=== PATIENT | male | born 1965 | race Caucasian/White ===

== ENCOUNTER 2020-07-14 12:25 | Emergency (ER) | payer SELFPAY ==
[~2020-07-14] VITALS: Ht 185.4 cm; Wt 79.4 kg
[2020-07-14 12:52] VITALS: BP 120/75
[2020-07-14] MEDS ORDERED: LIDOCAINE 1% HCL (LOCAL ANESTH.) INJ 20ML MDV ONE (14:29)
[2020-07-14] MEDS ORDERED: LIDOCAINE 1% HCL (LOCAL ANESTH.) INJ 20ML MDV IJ ONE (14:30)
[2020-07-14] MEDS ORDERED: TETANUS-DIPTH-ACEL PERTUSSIS 0.5ML SYR Tdap IM ONE (15:00)
== END 2020-07-14 15:47 | disposition home or self-care (01) ==
LOC: ER 12:25
DX: S61.411A Laceration without foreign body of right hand, initial encounter (principal); F17.210 Nicotine dependence, cigarettes, uncomplicated; W26.8XXA Contact with other sharp object(s), not elsewhere classified, initial encounter; Y93.89 Activity, other specified; Y92.89 Other specified places as the place of occurrence of the external cause; Y99.8 Other external cause status
CPT/HCPCS: 12002; 73130; 90471; 90715; 99283; J2001

== ENCOUNTER 2021-05-20 21:09 | Inpatient (IN) | payer MEDICAID, OTHER ==
[~2021-05-20] VITALS: Ht 185.4 cm; Wt 81.6 kg
[2021-05-20 22:40] LABS: Basophils # (auto) 0 10 ^3/uL (0-0.2); Basophils % (auto) 0.9 % (0.0-2.0); Eosinophils # (auto) 0.3 10 ^3/uL (0-0.8); Eosinophils % (auto) 5.4 % (0.0-7.0); Hematocrit 42.4 % (41.0-53.0); Lymphocytes # (auto) 0.8 10 ^3/uL (0.4-5.4); Lymphocytes % (auto) 13.9 % (10.0-50.0); Mean Corpuscular Hemoglobin 29.6 pg (28.0-32.0); Mean Corpuscular Hgb Conc. 33.2 g/dL (32.0-36.0); Mean Corpuscular Volume 89.4 fL (80.0-100.0); Monocytes # (auto) 0.6 10 ^3/uL (0-1.3); Monocytes % (auto) 9.9 % (0.0-12.0); Neutrophils % (auto) 69.9 % (37.0-80.0); Red Blood Cells 4.74 10^6/uL (4.5-5.90); Red Cell Distribution Width 14.3 % (11.8-14.3); White Blood Cell 5.7 10^3/uL (4.4-10.8)
[2021-05-20 22:59] LABS: Albumin 3.2 g/dL (3.4-5.0); Calcium 8.3 mg/dL (8.5-10.1); Potassium 3.8 mmol/L (3.5-5.1)
[2021-05-20 23:01] LABS: Bilirubin, Total 0.5 mg/dL (0.2-1.0); Total Protein 7.1 g/dL (6.4-8.2)
[2021-05-20 23:11] LABS: Lactic Acid w/Reflex 2.2 mmol/L (0.4-2.0)
[2021-05-20 23:38] LABS: INR 1.1 (0.9-1.15)
[2021-05-21] MEDS ORDERED: SODIUM CHLORIDE 0.9% 1,000 ML IV ONE (03:30)
[2021-05-21] MEDS ORDERED: CLINDAMYCIN 600MG IV 50 ML IV ONE (03:30)
[2021-05-21] MEDS ORDERED: HYDROcodone-ACET 5/325MG TAB PO PRN (06:45)
[2021-05-21] MEDS ORDERED: SODIUM CHLORIDE 0.9% 500 ML IV ONE (06:45)
[2021-05-21] MEDS ORDERED: ACETAMINOPHEN 325 MG TAB PO PRN (06:45)
[2021-05-21] MEDS ORDERED: ONDANSETRON HCL 4 MG/2 ML VIAL IV PRN (06:45)
[2021-05-21] MEDS ORDERED: TEMAZEPAM 15 MG CAP PO PRN (06:45)
[2021-05-21] MEDS: cefTRIAXone 1GM/50ML D5W 50 ML IV SCH (09:27)
[2021-05-21] MEDS: PANTOPRAZOLE 40 MG TAB PO SCH (09:27)
[2021-05-21] MEDS: ENOXAPARIN SOD 40 MG/0.4 ML SYRINGE SC SCH (10:10)
[2021-05-21] MEDS: CLINDAMYCIN 600MG IV 50 ML IV SCH ×2 (13:19→20:00)
[2021-05-21 21:20] VITALS: BP 157/76
[2021-05-21 22:00] VITALS: BP 157/76
[2021-05-22] MEDS: CLINDAMYCIN 600MG IV 50 ML IV SCH ×2 (04:46→12:00)
[2021-05-22 05:00] VITALS: BP 103/67
[2021-05-22 06:19] LABS: Basophils # (auto) 0 10 ^3/uL (0-0.2); Basophils % (auto) 0.6 % (0.0-2.0); Eosinophils # (auto) 0.3 10 ^3/uL (0-0.8); Eosinophils % (auto) 5.8 % (0.0-7.0); Hematocrit 41.5 % (41.0-53.0); Hemoglobin 13.8 g/dL (13.5-17.5); Lymphocytes # (auto) 0.7 10 ^3/uL (0.4-5.4); Lymphocytes % (auto) 13.6 % (10.0-50.0); Mean Corpuscular Hemoglobin 29.7 pg (28.0-32.0); Mean Corpuscular Hgb Conc. 33.4 g/dL (32.0-36.0); Mean Corpuscular Volume 89.1 fL (80.0-100.0); Monocytes # (auto) 0.6 10 ^3/uL (0-1.3); Monocytes % (auto) 11.1 % (0.0-12.0); Neutrophils # (auto) 3.6 10 ^3/uL (1.6-8.6); Neutrophils % (auto) 68.9 % (37.0-80.0); Nucleated Red Blood Cells % 0.1 %; Red Blood Cells 4.66 10^6/uL (4.5-5.90); Red Cell Distribution Width 14.3 % (11.8-14.3); White Blood Cell 5.3 10^3/uL (4.4-10.8)
[2021-05-22 06:48] LABS: BUN/Creatinine Ratio 21.1; Calcium 8.1 mg/dL (8.5-10.1); Potassium 4.2 mmol/L (3.5-5.1)
[2021-05-22 09:06] VITALS: BP 143/81
[2021-05-22] MEDS: cefTRIAXone 1GM/50ML D5W 50 ML IV SCH (09:10)
[2021-05-22] MEDS: PANTOPRAZOLE 40 MG TAB PO SCH (09:10)
[2021-05-22] MEDS: ENOXAPARIN SOD 40 MG/0.4 ML SYRINGE SC SCH (09:10)
[2021-05-22 14:13] VITALS: BP 142/71
[2021-05-22 14:38] VITALS: BP 142/71
[2021-05-22 16:22] VITALS: BP 152/83
== END 2021-05-22 16:46 | disposition home or self-care (01) | DRG 720 ==
LOC: ER 21:10 → OVERFLOW 05-21 06:45 → WEST WING 05-21 21:20 → TELE-WESTW 05-21 21:33
PROVIDERS: ADMIT Nurse Practitioner; ATTEND Family Medicine
DX: A41.9 Sepsis, unspecified organism (principal); E87.2 Acidosis; E44.0 Moderate protein-calorie malnutrition; L03.115 Cellulitis of right lower limb; L03.116 Cellulitis of left lower limb; F12.90 Cannabis use, unspecified, uncomplicated; F15.10 Other stimulant abuse, uncomplicated; F17.210 Nicotine dependence, cigarettes, uncomplicated; F19.10 Other psychoactive substance abuse, uncomplicated; Z20.822 Contact with and (suspected) exposure to COVID-19; Z68.23 Body mass index [BMI] 23.0-23.9, adult
CPT/HCPCS: 36415; 73590; 80048; 80053; 83605; 85025; 85610; 87040; 87426; 93005; 93306; 93971; 96361; 96365; 96366; G0378; J0696; J3490

== ENCOUNTER 2021-06-11 15:48 | Emergency (ER) | payer MEDICAID ==
[~2021-06-11] VITALS: Ht 182.9 cm; Wt 86.2 kg
[2021-06-11 15:50] VITALS: BP 140/87
[2021-06-11 16:41] LABS: Basophils # (auto) 0.1 10 ^3/uL (0-0.2); Basophils % (auto) 0.8 % (0.0-2.0); Eosinophils # (auto) 0.3 10 ^3/uL (0-0.8); Eosinophils % (auto) 3.5 % (0.0-7.0); Hematocrit 45.6 % (41.0-53.0); Hemoglobin 15.3 g/dL (13.5-17.5); Lymphocytes # (auto) 0.8 10 ^3/uL (0.4-5.4); Lymphocytes % (auto) 8.4 % (10.0-50.0); Mean Corpuscular Hemoglobin 29.5 pg (28.0-32.0); Mean Corpuscular Hgb Conc. 33.5 g/dL (32.0-36.0); Mean Corpuscular Volume 88.1 fL (80.0-100.0); Monocytes # (auto) 0.8 10 ^3/uL (0-1.3); Monocytes % (auto) 8.6 % (0.0-12.0); Neutrophils # (auto) 7.8 10 ^3/uL (1.6-8.6); Neutrophils % (auto) 78.7 % (37.0-80.0); Red Blood Cells 5.17 10^6/uL (4.5-5.90); Red Cell Distribution Width 14.2 % (11.8-14.3); White Blood Cell 9.8 10^3/uL (4.4-10.8)
[2021-06-11] MEDS ORDERED: ASPirin 81 mg TAB PO ONE (16:45)
[2021-06-11 18:13] LABS: Albumin 3.5 g/dL (3.4-5.0); BUN/Creatinine Ratio 17.6; Calcium 8.7 mg/dL (8.5-10.1); Potassium 3.9 mmol/L (3.5-5.1)
[2021-06-11 18:15] LABS: Bilirubin, Total 0.7 mg/dL (0.2-1.0); Total Protein 7.7 g/dL (6.4-8.2)
[2021-06-11] MEDS ORDERED: NITROGLYCERIN 0.4 MG SL TAB SL ONE (19:00)
== END 2021-06-11 19:22 | disposition left against medical advice (07) ==
LOC: ER 15:48
DX: I24.9 Acute ischemic heart disease, unspecified (principal); L03.116 Cellulitis of left lower limb; F17.210 Nicotine dependence, cigarettes, uncomplicated; F12.10 Cannabis abuse, uncomplicated; F15.10 Other stimulant abuse, uncomplicated; Z53.29 Procedure and treatment not carried out because of patient's decision for other reasons
CPT/HCPCS: 36415; 71045; 80053; 84484; 85025; 93005

== ENCOUNTER 2022-04-27 14:51 | Inpatient (IN) | payer MEDICAID ==
[~2022-04-27] VITALS: Ht 182.9 cm; Wt 73.6 kg
[2022-04-27] MEDS ORDERED: CLINDAMYCIN 600MG IV 50 ML IV ONE (15:30)
[2022-04-27 16:02] LABS: Basophils # (auto) 0 10 ^3/uL (0-0.2); Basophils % (auto) 0.5 % (0.0-2.0); Eosinophils # (auto) 0.1 10 ^3/uL (0-0.8); Eosinophils % (auto) 1.9 % (0.0-7.0); Hematocrit 37.5 % (41.0-53.0); Hemoglobin 12.2 g/dL (13.5-17.5); Lymphocytes # (auto) 0.3 10 ^3/uL (0.4-5.4); Lymphocytes % (auto) 4.8 % (10.0-50.0); Mean Corpuscular Hemoglobin 27.6 pg (28.0-32.0); Mean Corpuscular Hgb Conc. 32.4 g/dL (32.0-36.0); Mean Corpuscular Volume 85.2 fL (80.0-100.0); Monocytes # (auto) 0.5 10 ^3/uL (0-1.3); Monocytes % (auto) 8.7 % (0.0-12.0); Neutrophils # (auto) 4.7 10 ^3/uL (1.6-8.6); Neutrophils % (auto) 84.1 % (37.0-80.0); Red Cell Distribution Width 16.7 % (11.8-14.3); White Blood Cell 5.6 10^3/uL (4.4-10.8)
[2022-04-27 16:18] LABS: Albumin 2.9 g/dL (3.4-5.0); Calcium 7.9 mg/dL (8.5-10.1); Potassium 3.5 mmol/L (3.5-5.1)
[2022-04-27 16:30] LABS: BUN/Creatinine Ratio 27.1; Bilirubin, Total 0.5 mg/dL (0.2-1.0); Total Protein 6.4 g/dL (6.4-8.2)
[2022-04-27] MEDS ORDERED: TEMAZEPAM 15 MG CAP PO PRN (22:15)
[2022-04-27] MEDS ORDERED: ONDANSETRON HCL 4 MG/2 ML VIAL IV PRN (22:15)
[2022-04-27] MEDS ORDERED: cefTRIAXone 1GM/50ML D5W 50 ML IV ONE (22:15)
[2022-04-27] MEDS ORDERED: ACETAMINOPHEN 325 MG TAB PO PRN (22:15)
[2022-04-27 23:29] LABS: Lactic Acid w/Reflex 2.1 mmol/L (0.4-2.0)
[2022-04-27] MEDS: HYDROcodone-ACET 5/325MG TAB PO PRN (23:33)
[2022-04-28 04:20] LABS: Basophils # (auto) 0.1 10 ^3/uL (0-0.2); Basophils % (auto) 1.1 % (0.0-2.0); Eosinophils # (auto) 0.2 10 ^3/uL (0-0.8); Eosinophils % (auto) 3.9 % (0.0-7.0); Hemoglobin 11.8 g/dL (13.5-17.5); Lymphocytes # (auto) 0.5 10 ^3/uL (0.4-5.4); Mean Corpuscular Hemoglobin 27.6 pg (28.0-32.0); Mean Corpuscular Hgb Conc. 32.8 g/dL (32.0-36.0); Mean Corpuscular Volume 84.2 fL (80.0-100.0); Monocytes # (auto) 0.7 10 ^3/uL (0-1.3); Monocytes % (auto) 14.7 % (0.0-12.0); Neutrophils # (auto) 3.2 10 ^3/uL (1.6-8.6); Neutrophils % (auto) 69.3 % (37.0-80.0); Red Blood Cells 4.28 10^6/uL (4.5-5.90); Red Cell Distribution Width 16.9 % (11.8-14.3); White Blood Cell 4.7 10^3/uL (4.4-10.8)
[2022-04-28 04:38] LABS: BUN/Creatinine Ratio 22.7; Calcium 7.8 mg/dL (8.5-10.1); Potassium 3.2 mmol/L (3.5-5.1)
[2022-04-28] MEDS: CLINDAMYCIN 600MG IV 50 ML IV SCH ×3 (06:32→22:12)
[2022-04-28] MEDS ORDERED: NICOTINE 14 MG/24HR TOPICAL PATCH TD ONE (07:15)
[2022-04-28] MEDS: cefTRIAXone 1GM/50ML D5W 50 ML IV SCH (08:57)
[2022-04-28] MEDS: ENOXAPARIN SOD 40 MG/0.4 ML SYRINGE SC SCH (09:50)
[2022-04-28 15:02] VITALS: BP 116/83
[2022-04-28 17:00] VITALS: BP 103/71
[2022-04-28] MEDS: HYDROcodone-ACET 5/325MG TAB PO PRN ×2 (17:00→22:14)
[2022-04-28 22:00] VITALS: BP 118/74
[2022-04-29 05:00] VITALS: BP 111/72
[2022-04-29] MEDS: CLINDAMYCIN 600MG IV 50 ML IV SCH ×3 (05:55→21:59)
[2022-04-29 08:00] VITALS: BP 124/68
[2022-04-29 09:00] VITALS: BP 124/68
[2022-04-29] MEDS: cefTRIAXone 1GM/50ML D5W 50 ML IV SCH (09:18)
[2022-04-29] MEDS: ENOXAPARIN SOD 40 MG/0.4 ML SYRINGE SC SCH (09:18)
[2022-04-29] MEDS: HYDROcodone-ACET 5/325MG TAB PO PRN (12:03)
[2022-04-29 13:00] VITALS: BP 104/55
[2022-04-29 17:00] VITALS: BP 113/60
[2022-04-29 22:00] VITALS: BP 124/74
[2022-04-30 05:00] VITALS: BP 122/75
[2022-04-30] MEDS: CLINDAMYCIN 600MG IV 50 ML IV SCH ×3 (05:57→21:15)
[2022-04-30 08:03] VITALS: BP 139/85
[2022-04-30 09:00] VITALS: BP 139/85
[2022-04-30] MEDS: cefTRIAXone 1GM/50ML D5W 50 ML IV SCH (09:20)
[2022-04-30] MEDS: ENOXAPARIN SOD 40 MG/0.4 ML SYRINGE SC SCH (09:20)
[2022-04-30] MEDS ORDERED: ALUM & MAG HYDROX-SIMETH LIQ(MAALOX) 30 ML PO PRN (12:00)
[2022-04-30 13:00] VITALS: BP 135/78
[2022-04-30] MEDS: POLYETHYLENE GLYCOL 17 GM PWDR PO PRN (13:04)
[2022-04-30 16:56] VITALS: BP 132/61
[2022-04-30 20:00] VITALS: BP 133/91
[2022-04-30] MEDS: FAMOTIDINE 20 MG TAB PO SCH (21:15)
[2022-04-30] MEDS: DOCUSATE SOD 100 MG CAP PO SCH (21:15)
[2022-05-01 05:00] VITALS: BP 112/73
[2022-05-01] MEDS: CLINDAMYCIN 600MG IV 50 ML IV SCH ×3 (06:24→22:15)
[2022-05-01 09:00] VITALS: BP 118/70
[2022-05-01] MEDS: FAMOTIDINE 20 MG TAB PO SCH ×2 (10:15→22:15)
[2022-05-01] MEDS: DOCUSATE SOD 100 MG CAP PO SCH ×2 (10:15→22:15)
[2022-05-01] MEDS: ENOXAPARIN SOD 40 MG/0.4 ML SYRINGE SC SCH (10:15)
[2022-05-01] MEDS: cefTRIAXone 1GM/50ML D5W 50 ML IV SCH (10:16)
[2022-05-01] MEDS: POLYETHYLENE GLYCOL 17 GM PWDR PO PRN (10:16)
[2022-05-01] MEDS ORDERED: BISACODYL 10 MG RECT SUPP PR ONE (12:30)
[2022-05-01 13:00] VITALS: BP 157/89
[2022-05-01 16:54] VITALS: BP 102/53
[2022-05-01 22:00] VITALS: BP 147/94
[2022-05-02 05:00] VITALS: BP 124/73
[2022-05-02] MEDS: CLINDAMYCIN 600MG IV 50 ML IV SCH ×2 (05:59→14:31)
[2022-05-02 06:54] LABS: Basophils # (auto) 0 10 ^3/uL (0-0.2); Basophils % (auto) 0.4 % (0.0-2.0); Eosinophils # (auto) 0.3 10 ^3/uL (0-0.8); Eosinophils % (auto) 6.3 % (0.0-7.0); Hematocrit 35.4 % (41.0-53.0); Hemoglobin 11.6 g/dL (13.5-17.5); Lymphocytes # (auto) 0.6 10 ^3/uL (0.4-5.4); Lymphocytes % (auto) 11.4 % (10.0-50.0); Mean Corpuscular Hemoglobin 27.6 pg (28.0-32.0); Mean Corpuscular Hgb Conc. 32.8 g/dL (32.0-36.0); Mean Corpuscular Volume 84.2 fL (80.0-100.0); Monocytes # (auto) 0.5 10 ^3/uL (0-1.3); Monocytes % (auto) 10.3 % (0.0-12.0); Neutrophils # (auto) 3.8 10 ^3/uL (1.6-8.6); Neutrophils % (auto) 71.6 % (37.0-80.0); Red Blood Cells 4.21 10^6/uL (4.5-5.90); Red Cell Distribution Width 16.3 % (11.8-14.3); White Blood Cell 5.2 10^3/uL (4.4-10.8)
[2022-05-02 07:07] LABS: Potassium 4.5 mmol/L (3.5-5.1)
[2022-05-02 07:11] LABS: BUN/Creatinine Ratio 19.3; Calcium 8.1 mg/dL (8.5-10.1)
[2022-05-02 07:40] VITALS: BP 124/79
[2022-05-02 09:00] VITALS: BP 124/79
[2022-05-02] MEDS: FAMOTIDINE 20 MG TAB PO SCH (09:42)
[2022-05-02] MEDS: DOCUSATE SOD 100 MG CAP PO SCH (09:42)
[2022-05-02] MEDS: ENOXAPARIN SOD 40 MG/0.4 ML SYRINGE SC SCH (09:42)
[2022-05-02] MEDS: cefTRIAXone 1GM/50ML D5W 50 ML IV SCH (09:42)
[2022-05-02] MEDS ORDERED: CLIN-203 PO (16:34)
== END 2022-05-02 18:30 | disposition home or self-care (01) | DRG 383 ==
LOC: ER 14:51 → OVERFLOW 22:11 → WEST WING 04-28 15:01
PROVIDERS: ADMIT Nurse Practitioner; ATTEND Internal Medicine
DX: L03.116 Cellulitis of left lower limb (principal); E43 Unspecified severe protein-calorie malnutrition; R65.10 Systemic inflammatory response syndrome (SIRS) of non-infectious origin without acute organ dysfunction; L97.509 Non-pressure chronic ulcer of other part of unspecified foot with unspecified severity; T25.01 Burn of unspecified degree of ankle; Z59.02 Unsheltered homelessness; Z20.822 Contact with and (suspected) exposure to COVID-19; F15.90 Other stimulant use, unspecified, uncomplicated; F17.210 Nicotine dependence, cigarettes, uncomplicated; Z68.22 Body mass index [BMI] 22.0-22.9, adult; X58.XXXA Exposure to other specified factors, initial encounter; Y93.89 Activity, other specified; Y92.89 Other specified places as the place of occurrence of the external cause; Y99.8 Other external cause status
CPT/HCPCS: 36415; 73700; 80048; 80053; 83605; 84443; 85025; 85652; 87040; 87081; 87205; 93971; 96365; 96366; 96367; 96372; 96375; G0378; J0696; J2405; J3490